=== PATIENT | female | born 1995 | race Caucasian/White ===

== ENCOUNTER 2017-01-25 15:57 | Emergency (ER) | payer SELFPAY ==
[~2017-01-25] VITALS: Wt 59.9 kg
== END 2017-01-25 16:17 | disposition home or self-care (01) ==
LOC: ED 15:57
DX: S99.199A Other physeal fracture of unspecified metatarsal, initial encounter for closed fracture (principal); W00.0XXA Fall on same level due to ice and snow, initial encounter; Y93.89 Activity, other specified; Y92.098 Other place in other non-institutional residence as the place of occurrence of the external cause; Y99.8 Other external cause status; Z88.0 Allergy status to penicillin

== ENCOUNTER 2017-05-04 12:08 | Emergency (ER) | payer SELFPAY ==
[~2017-05-04] VITALS: Wt 61.2 kg
[2017-05-04] MEDS ORDERED: IBUPROFEN600 MG PO (15:02)
[2017-05-04] MEDS ORDERED: NORCO 5-325 TA1 EACH PO (15:02)
== END 2017-05-04 15:11 | disposition home or self-care (01) ==
LOC: ED 12:08
DX: S92.152A Displaced avulsion fracture (chip fracture) of left talus, initial encounter for closed fracture (principal); S92.215A Nondisplaced fracture of cuboid bone of left foot, initial encounter for closed fracture; Z88.0 Allergy status to penicillin; X50.1XXA Overexertion from prolonged static or awkward postures, initial encounter; Y93.89 Activity, other specified; Y92.89 Other specified places as the place of occurrence of the external cause; Y99.9 Unspecified external cause status

== ENCOUNTER 2017-06-18 23:52 | Emergency (ER) | payer SELFPAY ==
[~2017-06-18] VITALS: Ht 170.1 cm; Wt 59.0 kg
[~2017-06-18 23:52] MED LIST: IBUPROFEN600 MG PO; NORCO 5-325 TA1 EACH PO
[2017-06-19 00:24] LABS: BASO % 0.2 % (0.0-1.0); EOS # 0.3 10*3/uL (0.0-0.4); EOS % 1.7 % (1.0-4.0); HEMATOCRIT 37.3 % (37.0-47.0); HEMOGLOBIN 12.6 g/dl (12.0-16.0); LYMPH # 2.5 10*3/uL (1.3-4.4); LYMPH % 16.1 % (27.0-41.0); MEAN CELL VOLUME 91.2 fl (81.0-99.0); MEAN CORPUSCULAR HGB 30.8 pg (27.0-31.0); MEAN CORPUSCULAR HGB CONC 33.8 g/dl (33.0-37.0); MEAN PLATELET VOLUME 10.2 fl (9.6-12.3); MONO # 1.2 10*3/uL (0.1-1.0); MONO % 7.6 % (3.0-9.0); NEUT # 11.3 10*3/uL (2.3-7.9); NEUT % 73.9 % (47.0-73.0); PLATELET COUNT AUTOMATED 239 10*3/uL (130-400); RED BLOOD COUNT 4.09 10*6/uL (4.10-5.10); RED CELL DISTRI WIDTH 13.2 % (0-14.5); WHITE BLOOD COUNT 15.3 10*3/uL (4.8-10.8)
[2017-06-19 00:34] LABS: BILIRUBIN 1+ (NEGATIVE); BLOOD TRACE-INTACT (NEGATIVE); CLARITY CLOUDY (CLEAR); COLOR YELLOW (YELLOW); GLUCOSE NEGATIVE (NEGATIVE); KETONE NEGATIVE (NEGATIVE); LEUKO ESTERASE NEGATIVE (NEGATIVE); NITRITE POSITIVE (NEGATIVE); PH 6.5 (5.0-9.0)
[2017-06-19 00:42] LABS: BACTERIA 4+; EPITHELIAL CELLS 20-25; RBC 21-30 rbc/hpf (0-2)
[2017-06-19 00:44] LABS: ALBUMIN 3.5 gm/dl (3.1-4.5); ALKALINE PHOSPHATASE 84 U/L (45-117); BUN 6 mg/dl (7-24); CHLORIDE 107 mmol/L (98-107); CREATININE 0.96 mg/dL (0.55-1.02); LIPASE 136 U/L (73-393); POTASSIUM 3.9 mmol/L (3.5-5.1); SGOT/AST 17 IU/L (3-35); SGPT/ALT 24 U/L (12-78); SODIUM 139 mmol/L (136-145); TOTAL PROTEIN 6.8 gm/dL (6.4-8.2)
[2017-06-19 00:46] LABS: B-hCG (QUALITATIVE) NEGATIVE (NEGATIVE)
[2017-06-19] MEDS ORDERED: ZOFRAN ODT4 MG SL (02:11)
[2017-06-19] MEDS ORDERED: MACROBID100 M1 PO (02:11)
[2017-06-19] MEDS ORDERED: PEPCID40 MG PO (02:12)
[2017-06-19] MEDS ORDERED: TYLENOL W/CODEI1 TA4 PO (02:13)
== END 2017-06-19 02:32 | disposition home or self-care (01) ==
LOC: ED 23:52
PROVIDERS: Emergency Medicine
DX: K52.9 Noninfective gastroenteritis and colitis, unspecified (principal); R31.9 Hematuria, unspecified; Z88.0 Allergy status to penicillin; Z88.1 Allergy status to other antibiotic agents

== ENCOUNTER 2017-06-22 20:53 | Emergency (ER) | payer SELFPAY ==
[~2017-06-22] VITALS: Ht 170.1 cm; Wt 61.2 kg
[~2017-06-22 20:53] MED LIST changes: +MACROBID100 M1 PO; +PEPCID40 MG PO; +TYLENOL W/CODEI1 TA4 PO; +ZOFRAN ODT4 MG SL
[2017-06-22] MEDS ORDERED: SEPTDS PO (21:23)
== END 2017-06-22 21:39 | disposition home or self-care (01) ==
LOC: ED 20:53
DX: S80.862A Insect bite (nonvenomous), left lower leg, initial encounter (principal); F17.200 Nicotine dependence, unspecified, uncomplicated; Z88.0 Allergy status to penicillin; Z88.1 Allergy status to other antibiotic agents; W57.XXXA Bitten or stung by nonvenomous insect and other nonvenomous arthropods, initial encounter; Y93.89 Activity, other specified; Y92.89 Other specified places as the place of occurrence of the external cause; Y99.8 Other external cause status

== ENCOUNTER 2017-10-11 14:04 | Emergency (ER) | payer SELFPAY ==
[~2017-10-11] VITALS: Ht 170.1 cm; Wt 61.2 kg
[~2017-10-11 14:04] MED LIST changes: +SEPTDS PO
[2017-10-11 14:52] LABS: BILIRUBIN NEGATIVE (NEGATIVE); BLOOD NEGATIVE (NEGATIVE); CLARITY CLEAR (CLEAR); COLOR YELLOW (YELLOW); GLUCOSE NEGATIVE (NEGATIVE); KETONE NEGATIVE (NEGATIVE); LEUKO ESTERASE NEGATIVE (NEGATIVE); NITRITE NEGATIVE (NEGATIVE); SPECIFIC GRAVITY <= 1.005 (1.005-1.030); UROBILINOGEN 0.2 E.U./dl (0.2-1.0)
[2017-10-11] MEDS ORDERED: CHLORZOXAZONE500 M2 PO (15:01)
[2017-10-11] MEDS ORDERED: NAPROSYN500 MG PO (15:01)
[2017-10-11 15:07] LABS: BACTERIA TRACE; RBC 0-2 rbc/hpf (0-2)
== END 2017-10-11 15:21 | disposition home or self-care (01) ==
LOC: ED 14:04
PROVIDERS: Nurse Practitioner Family
DX: M54.5 Low back pain (principal); R03.0 Elevated blood-pressure reading, without diagnosis of hypertension; F17.200 Nicotine dependence, unspecified, uncomplicated; Z88.1 Allergy status to other antibiotic agents; Z88.0 Allergy status to penicillin; Z79.899 Other long term (current) drug therapy

== ENCOUNTER 2018-11-29 15:33 | Emergency (ER) | payer SELFPAY ==
[~2018-11-29] VITALS: Ht 170.1 cm; Wt 59.0 kg
[~2018-11-29 15:33] MED LIST changes: +CHLORZOXAZONE500 M2 PO; +NAPROSYN500 MG PO
[2018-11-29 15:57] LABS: BASO % 0.4 % (0.0-1.0); EOS # 0.1 10*3/uL (0.0-0.4); EOS % 0.9 % (1.0-4.0); HEMATOCRIT 40.3 % (37.0-47.0); LYMPH # 2.1 10*3/uL (1.3-4.4); LYMPH % 28.4 % (27.0-41.0); MEAN CELL VOLUME 90.6 fl (81.0-99.0); MEAN CORPUSCULAR HGB 31.5 pg (27.0-31.0); MEAN CORPUSCULAR HGB CONC 34.7 g/dl (33.0-37.0); MEAN PLATELET VOLUME 10.4 fl (9.6-12.3); MONO # 0.6 10*3/uL (0.1-1.0); MONO % 7.9 % (3.0-9.0); NEUT # 4.6 10*3/uL (2.3-7.9); PLATELET COUNT AUTOMATED 237 10*3/uL (130-400); RED BLOOD COUNT 4.45 10*6/uL (4.10-5.10); RED CELL DISTRI WIDTH 11.9 % (0-14.5); WHITE BLOOD COUNT 7.4 10*3/uL (4.8-10.8)
[2018-11-29 16:11] LABS: ALBUMIN 4.2 gm/dl (3.1-4.5); ALKALINE PHOSPHATASE 53 U/L (45-117); BUN 9 mg/dl (7-24); CHLORIDE 109 mmol/L (98-107); CREATININE 1.01 mg/dL (0.55-1.02); LIPASE 90 U/L (73-393); POTASSIUM 3.6 mmol/L (3.5-5.1); SGOT/AST 13 IU/L (3-35); SGPT/ALT 24 U/L (12-78); SODIUM 140 mmol/L (136-145); TOTAL PROTEIN 7.4 gm/dL (6.4-8.2)
[2018-11-29 16:20] LABS: BILIRUBIN NEGATIVE (NEGATIVE); BLOOD TRACE-INTACT (NEGATIVE); CLARITY SL CLOUDY (CLEAR); COLOR YELLOW (YELLOW); GLUCOSE NEGATIVE (NEGATIVE); KETONE NEGATIVE (NEGATIVE); LEUKO ESTERASE TRACE (NEGATIVE); NITRITE POSITIVE (NEGATIVE)
[2018-11-29 16:43] LABS: BACTERIA 4+; WBC 21-30 wbc/hpf (0-5)
[2018-11-29] MEDS ORDERED: SEPTDS PO (17:00)
[2018-11-29] MEDS ORDERED: ZOFRAN4 MG PO (17:00)
== END 2018-11-29 17:23 | disposition home or self-care (01) ==
LOC: ED 15:33
PROVIDERS: Nurse Practitioner Family
DX: N39.0 Urinary tract infection, site not specified (principal); A08.4 Viral intestinal infection, unspecified; Z87.440 Personal history of urinary (tract) infections; Z88.0 Allergy status to penicillin; Z88.1 Allergy status to other antibiotic agents